=== PATIENT | female | born 1950 | race Caucasian/White ===

== ENCOUNTER → 2019-11-24 09:48 | Outpatient (CLI) | payer MEDICARE, SELFPAY ==
--- NOTE | 2019-11-24 | DI.MG.S_ITS ---
UNILATERAL RIGHT DIGITAL DIAGNOSTIC MAMMOGRAM 3D/2D WITH ADDITIONAL VIEWS: 11/24/2019 CLINICAL: Additional evaluation requested from prior study. Comparison is made to exams dated: 11/11/2019 mammogram, 10/29/2018 mammogram, 08/27/2017 mammogram, 08/25/2016 mammogram, and 07/23/2015 mammogram - [facility]. The tissue of right breast is predominantly fatty. No significant masses, calcifications, or other findings are seen in the breast. Previously described asymmetries in the right breast are no longer visualized and likely represented summation artifact. Stable appearance in distribution and pattern of patient's fibroglandular breast tissue. IMPRESSION: INCOMPLETE: NEEDS ADDITIONAL IMAGING EVALUATION Previously described asymmetries in the right breast are no longer visualized and likely represented summation artifact, however, ultrasound is recommended to confirm and is scheduled to immediately follow this study. This exam was interpreted at Station ID: [id number]. NOTE: For mammograms, a report in lay terms will be sent to the patient. Approximately 15% of breast malignancies will not be visualized mammographically. In the management of a palpable breast mass, a negative mammogram must not discourage biopsy of a clinically suspicious lesion. Electronically Signed By: Rito Burnett M.D. aty/:11/24/2019 11:40:18 ACR BI-RADS Category 0: Incomplete 3340F
--- NOTE | 2019-11-24 | DI.US.S_ITS ---
ULTRASOUND OF RIGHT BREAST: 11/24/2019 CLINICAL: Additional evaluation requested from prior study. Comparison is made to exams dated: 11/24/2019 mammogram - [facility], 11/11/2019 mammogram, 10/29/2018 mammogram, 08/27/2017 mammogram, 08/25/2016 mammogram, and 07/23/2015 mammogram - [facility]. Real-time ultrasound of the right breast was performed. Britt scale images of the real-time examination were reviewed. No significant abnormalities were seen sonographically in the right breast. IMPRESSION: NEGATIVE There is no sonographic evidence of malignancy. There are no abnormalities seen in the right breast to correspond with the previously described mammography findings on 11/11/2019 mammogram which dispersed on today's additional view mammograms. Findings are consistent with stable appearance of fibroglandular tissue. A 1 year screening mammogram is recommended. This exam was interpreted at Station ID: [id number]. Electronically Signed By: Rito Burnett M.D. at/:11/24/2019 11:42:58 letter sent: Normal Exam Ultrasound BI-RADS: 1 Negative
== END ==
PROVIDERS: PCP Physician Assistant Medical; Referring Provider Physician Assistant Medical; Visit Provider Physician Assistant Medical
DX: R92.8 Other abnormal and inconclusive findings on diagnostic imaging of breast (principal)
CPT/HCPCS: 76642; 77065; G0279

== ENCOUNTER → 2023-05-06 10:42 | Outpatient (CLI) | payer MEDICARE, SELFPAY ==
--- NOTE | 2023-05-06 10:57 | DI.MRI.S_ITS ---
PROCEDURE: MR HEAD/BRAIN WO CON INDICATIONS: Parkinson's disease TECHNIQUE: Non-contrast axial T1 spin echo, axial T2 fast spin echo, sagittal and axial FLAIR, coronal T2 fast spin echo, axial gradient echo, axial diffusion and ADC through the brain. COMPARISON: [facility], MR, BRAIN W&WO CONTRAST, 02/13/2017, 8:23. FINDINGS: Image quality: Excellent. CSF spaces: Ventricles appear symmetric in size and shape. Basal cisterns are patent. No extra-axial fluid collections. Brain: No intracranial bleeds or mass effects. There is cerebral volume loss for age. There are periventricular and deep white matter chronic small vessel ischemic changes. Brainstem appears normal. Diffusion-weighted images show no acute ischemic insults. No chronic ischemic insults. Normal intravascular flow voids are present. Skull and face: Calvarial bone marrow is normal in signal. Orbits are normal. Sinuses: Sinuses and mastoids are clear. IMPRESSION: Brain MRI within normal limits for age, similar to prior. Dictated by: Baljinder Phillips M.D. on 05/06/2023 at 11:39 Approved by: Baljinder Phillips M.D. on 05/06/2023 at 11:40
== END ==
PROVIDERS: Family Provider Physician Assistant Medical; PCP Physician Assistant Medical; Referring Provider Psychiatry & Neurology Neurology; Visit Provider Psychiatry & Neurology Neurology
DX: G20 Parkinson's disease (principal); R41.9 Unspecified symptoms and signs involving cognitive functions and awareness
CPT/HCPCS: 70551

== ENCOUNTER → 2023-06-29 11:14 | Outpatient (CLI) | payer MEDICARE, SELFPAY ==
--- NOTE | 2023-06-29 11:16 | DI.CT.S_ITS ---
PROCEDURE: CT CHEST ABD PEL W CON INDICATIONS: Abnormal weight loss Diarrhea, unspecified TECHNIQUE: After the administration of oral and intravenous contrast, axial sections acquired from the supraclavicular neck to the pubic symphysis. Coronal and sagittal reformats were performed. For radiation dose reduction, the following was used: automated exposure control, adjustment of mA and/or kV according to patient size. COMPARISON: None. FINDINGS: Image quality: Excellent. CHEST: Lower Neck: No enlarged lymph nodes. Thyroid: Within normal limits. Axillae: No enlarged lymph nodes. Chest Wall: Unremarkable. Lungs and Airways: N no focal pulmonary consolidations. There is a 5 mm right lower lobe nodule (3/180). Multiple additional bilateral pulmonary nodules measuring 5 mm or less are present. Pleura: No pneumothorax or pleural effusions. Heart: Heart size is normal. No pericardial effusion. Thoracic Vessels: The aorta and pulmonary arteries demonstrate normal size. Atherosclerotic vascular calcifications. Mediastinum and Radha: No enlarged lymph nodes. Esophagus: No wall thickening. No hiatal hernia. ABDOMEN: Liver: Simple appearing hepatic cysts. Mild hepatomegaly measuring 18.3 cm at the midclavicular line. Gallbladder: Not visualized, cholecystectomy versus contracted. Biliary ducts: Unremarkable. Pancreas: Unremarkable. Spleen: Unremarkable. Adrenal Glands: Not well seen, appear grossly unremarkable. Kidneys and Ureters: Right renal simple cyst. The kidneys otherwise enhance symmetrically without hydronephrosis.. Stomach and Bowel: Stomach, small bowel loops, and colon are unremarkable. Peritoneum: No abnormal intraperitoneal fluid. No free air. Ventral Wall: No hernia. Abdominal Nodes: No retroperitoneal or mesenteric adenopathy by size criteria. Vessels: Aorta and inferior vena cava are normal in size. Atherosclerotic vascular calcifications. PELVIS: Pelvic Organs: Unremarkable. Bladder: Unremarkable. Pelvic Nodes: No enlarged lymph nodes. Miscellaneous: No inguinal hernias are seen. Bones: Diffusely decreased osseous mineralization. Multilevel degenerative changes of the spine. S shaped curvature of the spine. IMPRESSION: 1. No cause for patient's symptoms is identified. 2. Scattered pulmonary nodules measuring 5 mm or less. Per Fleischner criteria, if patient is low risk, no follow-up is necessary. If patient is high risk, one year follow-up chest CT is recommended. 3. Mild hepatomegaly. Dictated by: Cole Franks M.D. on 06/29/2023 at 16:32 Approved by: Cole Franks M.D. on 06/29/2023 at 16:43
[2023-06-29 12:23] LABS: Estimated Glomerular Filt Rate > 60 mL/min (>60)
== END ==
PROVIDERS: Emergency Medicine; Family Provider Physician Assistant Medical; PCP Physician Assistant Medical; Referring Provider Physician Assistant Medical; Visit Provider Physician Assistant Medical
DX: R91.8 Other nonspecific abnormal finding of lung field (principal); R16.0 Hepatomegaly, not elsewhere classified; R63.4 Abnormal weight loss; R19.7 Diarrhea, unspecified; R26.81 Unsteadiness on feet
CPT/HCPCS: 36415; 71260; 74177; 82565; Q9967

== ENCOUNTER → 2024-04-18 07:41 | Outpatient (CLI) | payer MEDICARE, SELFPAY ==
--- NOTE | 2024-04-18 | DI.ECHO.S_ITS ---
[facility] : : [id number] : : [place] : : [id number] : : Phone: [phone] Echocardiogram Report + + :Name: REGAN TREJO Study Date: 04/18/2024 Height: 68 in : :[facility] ReadingLocation: Weight: 119 lb : : Gender: Female BSA: 1.6 m2 : :: 1950 Age: 74 yrs BP: 139/80 mmHg: :Reason For Study: SHORTNESS OF BREATH : :Ordering Physician: JEN, : :CHADD Performed By: Flakito Parks : :Referring: CHADD LI : + + Interpretation Summary The left ventricle is normal in size and wall thickness. The left ventricular ejection fraction is normal. The ejection fraction is estimated to be 60-65%. No significant diastolic dysfunction. The right ventricle is normal size. The right ventricular systolic function is normal. No significant valvular pathology seen. There is mild luminal irregularity and echogenicity in the abdominal aorta, suggestive of aortic atherosclerotic disease. The IVC is dilated (diameter is greater than 2.1 cm) yet it collapses greater than 50% with a sniff. This suggests a right atrial pressure of 8 mm Hg. Procedure: A two-dimensional transthoracic echocardiogram with color flow and Doppler was performed. The study quality was technically difficult. There is no prior echocardiogram noted for this patient. The patient was in sinus rhythm with heart rates between 69-77 bpm during the exam. Left Ventricle: The left ventricle is normal in size and wall thickness. There is no thrombus. The ejection fraction is estimated to be 60-65%. The left ventricular ejection fraction is normal. There are no focal wall motion abnormalities. No significant diastolic dysfunction. Right Ventricle: The right ventricle is normal size. The right ventricular systolic function is normal. Atria: The left atrial size is normal. Right atrial size is normal. The interatrial septum grossly appears intact with no obvious evidence for an atrial septal defect. Mitral Valve: The mitral valve is normal. There is no mitral valve stenosis. There is trace mitral regurgitation. Aortic Valve: The aortic valve is trileaflet. The aortic valve opens well. The aortic valve is slightly calcified. There is no aortic valve stenosis. There is trace aortic regurgitation. Tricuspid Valve: The tricuspid valve is normal. There has been no significant change since the previous study. There is trace tricuspid regurgitation. Pulmonary artery pressures cannot be estimated because of the lack of a measurable TR jet velocity. Pulmonic Valve: The pulmonic valve is not well visualized. There is no pulmonic valvular stenosis. There is no pulmonic valvular regurgitation. Great Vessels: The aortic root is normal size. The ascending aorta could not be visualized. There is mild luminal irregularity and echogenicity in the abdominal aorta, suggestive of aortic atherosclerotic disease. The IVC is dilated (diameter is greater than 2.1 cm) yet it collapses greater than 50% with a sniff. This suggests a right atrial pressure of 8 mm Hg. Pericardium/ Pleura There is no pericardial effusion. There is no pleural effusion. MMode/2D Measurements & Calculations LVIDd: 3.7 cm LVOT diam: 2.0 cm LVIDs: 2.5 cm Ao root diam: 2.8 cm FS: 34.3 % IVSd: 0.94 cm LVPWd: 0.98 cm LV chiang. diameter/BSA (cm/m^2): 2.3 LV sys. diameter/BSA (cm/m^2): 1.5 LA A2 area: 14.6 cm2 RA long axis: 3.8 cm LA A4 area: 13.1 cm2 RA area: 11.4 cm2 LA length (vol): 3.9 cm RA vol: 28.5 ml LA vol: 41.4 ml RA : 17.4 ml/m2 LA vol index: 25.3 ml/m2 IVC diam: 2.6 cm RVD1 (basal): 3.3 cm RVD2 (mid): 2.6 cm TAPSE: 2.2 cm Doppler Measurements & Calculations Ao V2 max: 114.7 cm/sec LVOT Max Ryley: 94.0 cm/sec Ao V2 mean: 79.6 cm/sec LV V1 max P.5 mmHg Ao max P.3 mmHg LV V1 VTI: 19.9 cm Ao mean P.8 mmHg VIDA(I,D): 2.4 cm2 Ao V2 VTI: 25.1 cm VIDA(V,D): 2.5 cm2 sev ratio: 0.79 VIDA indexed to BSA (cm^2/m^2): 1.4 MV E max ryley: 78.0 cm/sec PA V2 max: 119.7 cm/sec MV A max ryley: 68.6 cm/sec PA V2 mean: 94.9 cm/sec MV E/A: 1.1 PA mean P.9 mmHg Med Peak E' Ryley: 8.0 cm/sec PA pr(Accel): 27.6 mmHg E/E' med: 9.7 Lat Peak E' Ryley: 8.8 cm/sec E/E' lat: 8.8 E/e' average: 9.3 MV dec time: 0.15 sec SV([facility]): 59.7 ml Reading Physician:01:04 PM
== END ==
LOC: ECHO 07:42
PROVIDERS: Family Provider Physician Assistant Medical; PCP Physician Assistant Medical; Referring Provider Internal Medicine Cardiovascular Disease; Visit Provider Internal Medicine Cardiovascular Disease
DX: R06.02 Shortness of breath (principal)
CPT/HCPCS: 93306

== ENCOUNTER → 2024-05-13 10:06 | Outpatient (CLI) | payer MEDICARE, SELFPAY ==
--- NOTE | 2024-05-13 21:02 | DI.NM.S_ITS ---
DATE OF SERVICE: 05/13/2024 PROCEDURE PERFORMED: Pharmacologic vasodilator stress and rest myocardial perfusion imaging with gating to assess ejection fraction and regional wall motion. ORDERING PROVIDER: Deb Galaviz MD. INDICATIONS: The patient is a 74-year-old female with Parkinson's disease and dementia who reports exertional dyspnea. CARDIAC STRESS: Per protocol, 0.4 mg of regadenoson was infused with a normal hemodynamic response. She had moderate dyspnea, but no chest discomfort. Her resting ECG is normal and there are no ST-segment shifts or arrhythmias with stress. Per protocol, 25.6 millicuries of technetium-99m Myoview was injected and she was imaged 15 minutes later using a gated SPECT acquisition protocol. Earlier in the day while at rest, she had been injected with 12.3 millicuries of technetium-99m Myoview and was imaged 15 minutes later, again using a gated SPECT acquisition protocol. FINDINGS: 1. Raw data. There is fairly good myocardial tracer uptake. There is some mild subdiaphragmatic tracer activity behind the inferior wall, more notable on the resting images. There are no significant breast shadows. The lung/heart ratio is normal at 0.14 with a normal TID ratio of 0.96. 2. Quantitated gated SPECT: Post-stress ejection fraction is estimated at 92%, likely an overestimate because of relatively small left ventricular volumes. There are no focal wall motion abnormalities. The resting ejection fraction is estimated at 86% with a normal resting end-diastolic volume of 69 mL. 3. Myocardial perfusion imaging: Post-stress supine images show no concerning perfusion defects although there is some subtle tracer activity adjacent to the inferolateral wall that could influence the interpretation. Prone images were unable to be obtained. The resting images show an identical perfusion pattern without any areas of improvement. IMPRESSION: 1. Probable normal myocardial perfusion study. 2. No evidence of myocardial ischemia or previous myocardial infarction, although mild subdiaphragmatic tracer activity adjacent to the inferior lateral wall reduces the sensitivity for the detection slightly. 3. High normal left ventricular systolic function with relatively small left ventricular volumes and no focal wall motion abnormality. 4. No angina or ECG evidence of ischemia with pharmacologic vasodilator stress. Shalini Harry - LEFTY/karis/MARY doc#: [id number]/job#: [id number] dd: 05/13/2024 16:19:00 dt: 05/13/2024 20:07:00 DICTATING MD/COPIES TO: Beryr Brenner MD; Deb Galaviz MD COPIES MNE: DEANNA;
== END ==
PROVIDERS: Family Provider Physician Assistant Medical; PCP Physician Assistant Medical; Referring Provider Internal Medicine Cardiovascular Disease; Visit Provider Internal Medicine Cardiovascular Disease
DX: R06.02 Shortness of breath (principal); R06.00 Dyspnea, unspecified; G20.A1 Parkinson's disease without dyskinesia, without mention of fluctuations; F02.80 Dementia in other diseases classified elsewhere, unspecified severity, without behavioral disturbance, psychotic disturbance, mood disturbance, and anxiety
CPT/HCPCS: 78452; 93017; A9502; J2785